=== PATIENT | male | born 1940 | race Caucasian/White ===

== ENCOUNTER → 2017-01-23 | Outpatient (CLI) | payer MEDICARE ==
--- NOTE | 2017-01-23 20:55 | RADIOLOGY REPORT PS360 ---
CHEST(2 VIEWS-NOT PORTABLE) COMPARISON: None HISTORY: Shortness of breath TECHNIQUE: PA and lateral chest FINDINGS: Mild to moderate emphysematous changes seen with hyperexpansion of lung tinajero. I see no pneumonic infiltrate. The cardiac silhouette is normal size and the vascularity is normal. There is no pleural fluid. IMPRESSION: Mild to moderate COPD, no acute chest pathology noted
== END ==
LOC: RAD 12:02
DX: R06.02 Shortness of breath (principal)

== ENCOUNTER → 2017-06-13 | Outpatient (CLI) | payer MEDICARE ==
[2017-06-13 15:39] LABS: LYMPH # 1.5 K/mm3 (0.7-4.5); LYMPH % 17.9 % (10-50)
[2017-06-13 15:45] LABS: URINE BILIRUBIN - DIPSTICK NEGATIVE (NEG); URINE BLOOD NEGATIVE (NEG)
[2017-06-13 16:07] LABS: BUN 24 mg/dL (7-18)
[2017-06-13 16:08] LABS: URINE SQUAMOUS CELLS OCC #/hpf (OCC)
[2017-06-13 16:14] LABS: GFR (ESTIMATED) 31 ML/MIN (>60)
== END ==
LOC: LAB 14:56
PROVIDERS: Internal Medicine Nephrology
DX: N28.9 Disorder of kidney and ureter, unspecified (principal)

== ENCOUNTER → 2017-07-11 | Outpatient (CLI) | payer MEDICARE ==
--- NOTE | 2017-07-11 10:57 | RADIOLOGY REPORT PS360 ---
CERVICAL SPINE 4 OR 5 VIEWS CERVICAL SPINE 4 OR 5 VIEWS COMPARISON: None HISTORY: Generalized neck pain TECHNIQUE: AP lateral and oblique views and spot view of the odontoid FINDINGS: There is normal curvature and alignment. C1-C7 appear intact. Disc spaces are well-maintained throughout except for minimal narrowing at the C6-7 level. The oblique films are somewhat poorly position making evaluation of neural foraminal less than satisfactory. The prevertebral soft tissues are normal and the odontoid is normal. IMPRESSION: Minor degenerative disc disease C6-7, neural foramina are not adequately evaluated and if there is radiculopathy present then consider MRI scanner CT scan cervical spine.
== END ==
LOC: RAD 09:38
DX: M54.2 Cervicalgia (principal)

== ENCOUNTER 2017-08-22 09:15 | Day surgery (SDC) | payer MEDICARE ==
[~2017-08-22] VITALS: Ht 182.9 cm; Wt 104.3 kg
--- NOTE | 2017-08-22 11:16 | Operative Note ---
Endoscopy Report Date: 08/22/17 Preoperative diagnosis: History of multiple tubular adenomas Procedure Type of procedure: Total colonoscopy with multiple polypectomy by snare and biopsy forceps Indications: Patient is a 76-year-old white male. He had undergone colonoscopy in 2006 revealing a few tubular adenomas. Follow-up colonoscopy was done in 2011 which revealed some tubular adenomas. He then underwent follow-up surveillance colonoscopy in 2015 at which time he had 23 tubular adenomas removed. Due to the large amount of tubular adenomas and relatively early interval development plan was made for follow-up colonoscopy in one year. Consent was obtained the patient was taken to same-day surgery endoscopy procedure room. He was positioned in a lateral decubitus position. Adequate intravenous sedation was achieved with anesthesia titration of propofol. Variable stiffness Olympus colonoscope was inserted via the anus. It was advanced to the he can without significant difficulty. Colonoscope was withdrawn through the colon. In the proximal transverse colon there was a small polyp which was removed with cold biopsy forceps. There was an additional polyp noted in the transverse colon as well as distal transverse colon these were removed with cold snare as well. Colonoscope was withdrawn through the colon. There are a few sigmoid diverticula noted. In the distal sigmoid colon there were a couple of diminutive polyps which were removed with cold biopsy forceps. Retroflexion within the rectum revealed nonbleeding internal hemorrhoids. Colonoscope was withdrawn. Findings 1. Polyp 2. Diverticulosis Follow-Up Follow-Up: Plan to follow-up on the histopathology. Given the prior history and number of polyps one year ago likely plan repeat colonoscopy in 2 years. at 1232
[2017-08-22 13:54] VITALS: BP 142/76
== END 2017-08-22 11:35 | disposition home or self-care (01) ==
LOC: SDC 09:15
PROVIDERS: Surgery
PROC: 0DBL8ZX Excision of Transverse Colon, Via Natural or Artificial Opening Endoscopic, Diagnostic (ICD-10-PCS; 2017-08-22)
PROC: 0DBL8ZX Excision of Transverse Colon, Via Natural or Artificial Opening Endoscopic, Diagnostic (ICD-10-PCS; 2017-08-22)
PROC: 0DBN8ZX Excision of Sigmoid Colon, Via Natural or Artificial Opening Endoscopic, Diagnostic (ICD-10-PCS; principal; 2017-08-22 10:00)
DX: Z09 Encounter for follow-up examination after completed treatment for conditions other than malignant neoplasm (principal); Z86.010 Personal history of colon polyps; K57.30 Diverticulosis of large intestine without perforation or abscess without bleeding; K64.8 Other hemorrhoids; K63.5 Polyp of colon

== ENCOUNTER → 2017-09-07 | Outpatient (CLI) | payer MEDICARE ==
[2017-09-07 13:51] LABS: URINE BILIRUBIN - DIPSTICK NEGATIVE (NEG); URINE BLOOD NEGATIVE (NEG)
[2017-09-07 14:04] LABS: URINE SQUAMOUS CELLS OCC #/hpf (OCC)
[2017-09-07 14:22] LABS: HEMOGLOBIN 12.6 g/dL (14.1-18.0); LYMPH # 1.3 K/mm3 (0.7-4.5); LYMPH % 16.9 % (10-50)
[2017-09-07 14:54] LABS: BUN 16 mg/dL (7-18)
--- NOTE | 2017-09-07 14:54 | RADIOLOGY REPORT PS360 ---
US [id number] HISTORY: RENAL INSUFFICIENCY ORDERING PHYSICIAN: LOLLY MOODY PATIENT AGE: 76 years COMPARISON: None FINDINGS: RIGHT KIDNEY:The right kidney measures 9 x 5 x 6 cm and contains at least 2 cysts one in the upper pole at 17 mm and one in the mid to upper pole 15 mm. There is mild cortical thinning. No hydronephrosis. LEFT KIDNEY:The left kidney measures 10 x 6 x 4.9 cm and contains small cysts the largest at 2 cm. Mild cortical thinning. OTHER FINDINGS: No hydronephrosis IMPRESSION: Bilateral renal cortical thinning with small bilateral renal cysts. No hydronephrosis
[2017-09-07 15:33] LABS: GFR (ESTIMATED) 31 ML/MIN (>60)
== END ==
LOC: RAD 12:59
PROVIDERS: Internal Medicine Nephrology
DX: N28.9 Disorder of kidney and ureter, unspecified (principal)